=== PATIENT | male | born 1955 | race Caucasian/White ===

== ENCOUNTER 2021-06-16 10:42 | Emergency (ER) | payer MEDICAID ==
[~2021-06-16] VITALS: Ht 190.5 cm; Wt 147.0 kg
[2021-06-16] MEDS ORDERED: BACITRACIN ZINC OINT UDPKT TOP ONE (11:00)
[2021-06-16] MEDS ORDERED: LIDOCAINE HCL/PF 1% 10 MG/ML 5ML VIAL INFIL ONE (11:00)
[2021-06-16] MEDS ORDERED: BACITRACIN ZINC OINT UDPKT TOP NR (11:15)
[2021-06-16] MEDS ORDERED: LIDOCAINE HCL 1% 10 MG/ML 10ML VIAL IJ NR (11:15)
[2021-06-16] MEDS ORDERED: CEPH500C2 MT (13:45)
[2021-06-16 14:11] VITALS: BP 151/89
== END 2021-06-16 14:12 | disposition home or self-care (01) ==
LOC: ER 10:42
DX: R60.0 Localized edema (principal); L03.011 Cellulitis of right finger; M79.661 Pain in right lower leg; M25.511 Pain in right shoulder; I48.20 Chronic atrial fibrillation, unspecified; I10 Essential (primary) hypertension; E11.9 Type 2 diabetes mellitus without complications; Z79.01 Long term (current) use of anticoagulants; Z79.899 Other long term (current) drug therapy
CPT/HCPCS: 10060; 93971; 99284; J3490